=== PATIENT | male | born 1975 | race African-American/Black ===

== ENCOUNTER 2023-02-11 15:32 | Outpatient (CLI) | payer OTHER ==
--- NOTE | 2023-02-11 16:30 | SLEEP CARE CONSULTATION ---
Information from patient questionnaire entered by Jennifer Urban. I have reviewed and concur with the information entered by Jennifer Urban. This document represents the service I personally performed and the decisions made by me, Perri Aguilar ARNP. History of Present Illness Service Date and Time: 02/11/2023 1532 Reason for Visit: New patient Chief Complaint: reports: Unrefreshed sleep, Excessive daytime sleepiness, Fatigue, Frequent awakenings at night Date of Onset: 2YRS Usual bedtime: 1030PM Time it takes to fall asleep: 10-15MIN Snores at night: Yes Observed to quit breathing while asleep: No Sleeps alone due to snoring: No Number of times waking at night: 5-6 Reasons for waking at night: reports: Other (UNKOWN). denies: Choking, Snoring, Gasping for air Toss, Turn, or Twitch while sleeping: Yes Recalls having dreams: Yes Usually gets out of bed at: 530AM; weekends [id number] if alexandr Feels refreshed in the morning: No Morning headache: No Sleepy or fatigued during the day: Yes Ever fallen asleep while driving: Yes (drowsy driving; no accidents) Takes day naps: No (naps during day make him more tired) Dreams during day naps: Yes Prior sleep studies: Yes Year and Where: [facility] 2013 Additional HPI information: I had the pleasure of seeing MAN SEQUEIRA today regarding the possibility of him having a sleep disorder. His current complaints are excessive daytime sleepiness, fatigue, frequent night awakenings, snoring and unrefreshed sleep. He states it is easy to fall asleep but he cannot stay asleep at night. He is waking up 3-4 times a night. His mind is racing and he cannot shut it off. He has tried many modalities to try to sleep consistently. He states he snores but his can still sleep in same room without complaining of his snoring. She falls asleep before him and he gets up before she does. He states he does not wake up feeling rested and is fatigued during the day. He has had some drowsy driving, but no accidents. He would just like to be able to sleep through the night and feel rested. He had a sleep study in 2014 at [facility] that was negative for sleep apnea. He states he has gained about 15 pounds since that last study. - Parasomnia Symptoms Ever been unable to move upon waking from sleep: Yes (6 times in last 5 years) Walks in sleep: No Talks in sleep: No Ever acted out dreams in sleep: No Ever felt weak in the knees when startled or emotional: No Bothered by creepy, crawly, restless sensations in legs: No Problems with memory or concentration: Yes (both) Subjective Initial [place] Sleepiness Scale score: 20 (02/11/23) Past Medical History Past Medical History: reports: Other (samson knee surgeries in last year) Social History The patient's occupation is a [employer]. Patient is Single and lives in [place]. Have you smoked in the past 12 months: No Alcohol use: Yes Alcohol amount and frequency: 2-3 DRINKS 3 TIMES WEEK Caffeine use: Yes Caffeine amount and frequency: 1-2 FROM TIME TO TIME Family History Family history of sleep disordered breathing: No Family Hx Sleep Apnea: Grandparent: Snoring Allergies and Home Medications Known drug allergies: No Drug allergies reviewed: Yes Home medication list reviewed: Yes Allergy and home medication list: Allergies No Known Drug Allergies Allergy (Verified 02/10/23 10:16) Medications: Celebrex, for knees Omeprazole, daily for heartburn Review of Systems Cardiovascular: reports: high blood pressure (recent measurements, no treatment at this time) Gastrointestinal: reports: heartburn Neurological: denies: headaches, head trauma Psychiatric: denies: Attention Deficit Hyperactivity, anxiety, depression Ear/Nose/Throat: reports: wisdom teeth removed. denies: injury to nose, tonsillectomy Endocrine: denies: thyroid disease Musculoskeletal: reports: joint pain, back pain, joint swelling Immunologic: denies: allergies to food or environment Physical Exam Vital signs obtained and entered by: JENNIFER Calabrese MA Blood Pressure: 130/86 (LEFT ARM) Cuff size: regular Heart Rate: 72 O2 Saturation: 96 Height: 5 ft 10 in Weight: 240 lb Body Mass Index: 34.4 BMI Classification: Obese Neck circumference: 19.25 Mouth and throat: narrow oropharynx Soft palate: long Hard palate: normal Uvula: normal Uvula visualization: 0% Mallampati Class IV Tongue: enlarged in size with teeth martinez on lateral edges Tonsils: 1+ Neck: normal w/o lymphadenopathy or thyromegaly Heart: regular rate and rhythm Lungs: clear bilaterally Impression and Plan 1. Suspected Obstructive Sleep Apnea-Hypopnea Syndrome, as suggested by a history of loud and irregular snoring, frequent awakening during the night, unrefreshed sleep, cognitive impairment, and excessive daytime sleepiness. Narrow oropharynx and obesity are common predisposing factors for obstructive sleep apnea-hypopnea syndrome. I recommend proceeding to polysomnography to confirm the diagnosis and to assess severity. If the patient has significant sleep disordered breathing, a manual CPAP titration study will also be performed to find the optimal treatment pressure. I informed the patient of what the sleep studies involve and after some discussion, obtained agreement to proceed. The pathophysiology of obstructive sleep apnea-hypopnea syndrome was discussed with the patient and health risks of cardiovascular and cerebrovascular disease if not treated. Risks of drowsy driving discussed in detail and patient advised to avoid long distance driving and to [employer] at the first sign of drowsiness. Patient agreed to plan. * Schedule polysomnography * Avoid long distance driving or driving when feeling sleepy. * Avoid alcohol, sedative and muscle relaxant around bedtime. * Attempt to lose weight. * Review instructions provided by trained office staff on how to prepare for the sleep study. * Return for follow-up after sleep study completed. Counseling Topics: Weight loss health impact Visit Type: In Office Time Spent with Patient (minutes): 30 Provider Statement: I spent 100% of the Face to Face Visit with the patient with greater than 50% spent counseling the patient and coordination of care.
[2023-02-11 16:40] VITALS: BP 130/86
== END 2023-02-11 15:33 | disposition home or self-care (01) ==
LOC: SC 15:32
PROVIDERS: ATTEND Nurse Practitioner Family
DX: R06.83 Snoring (principal); G47.8 Other sleep disorders; G47.10 Hypersomnia, unspecified; R53.83 Other fatigue; E66.9 Obesity, unspecified; Z68.34 Body mass index [BMI] 34.0-34.9, adult
CPT/HCPCS: 99203; 99212

== ENCOUNTER 2023-03-11 20:50 | Outpatient (CLI) | payer OTHER | END 2023-03-11 20:51 | disposition home or self-care (01) | LOC: SC 20:50 | PROVIDERS: ATTEND Nurse Practitioner Family | DX: G47.33 Obstructive sleep apnea (adult) (pediatric) (principal); G47.61 Periodic limb movement disorder; E66.9 Obesity, unspecified; Z68.34 Body mass index [BMI] 34.0-34.9, adult | CPT/HCPCS: 95810 ==

== ENCOUNTER 2023-03-22 11:24 | Outpatient (CLI) | payer OTHER ==
[2023-03-22 12:29] VITALS: BP 144/110
--- NOTE | 2023-03-22 12:29 | SLEEP CARE CONSULTATION ---
Information from patient questionnaire entered by Navin Urban. I have reviewed and concur with the information entered by Navin Urban. This document represents the service I personally performed and the decisions made by me, Vera Schaefer MD, [facility]. History of Present Illness Service Date and Time: 03/22/2023 1124 Initial [place] Sleepiness Scale score: 20 (02/11/23) Current [place] Sleepiness Scale score: 14 (03/22/23) Additional HPI information: HPI: Mr. Koch returned for follow up of the sleep study he had on 03/11/2023. The polysomnography showed that the patient had slightly reduced sleep efficiency due to frequent awakenings during the night. The sleep architecture was abnormal for sleep fragmentation and reduced amount of time spent in REM and slow wave sleep (N3). Respiratory monitoring showed mild obstructive sleep apnea-hypopnea (AHI = 5.5) associated with frequent arousals, oxyhemoglobin desaturation and moderate hypoxia (cece oxygen saturation of 79%). The patient had very limited supine sleep (supine AHI = 12.0; non-supine = 5.55). Snore was light to moderate in intensity. There was mild periodic leg movement of sleep contributing to the sleep fragmentation. Cardiac rhythm was normal sinus rhythm without significant arrhythmia. No abnormal behavior (parasomnia) observed during the night. The patient was informed of these findings. I explained to him the pathophysiology behind obstructive sleep apnea. We then spent quite a bit of time discussing different treatment options. For mild obstructive sleep apnea, surgery and oral appliance are alternatives to nasal CPAP therapy but in moderate or severe cases, nasal CPAP is the most effective and reliable treatment. Weight loss in an obese individual is strongly recommended. After some discussion, he opted to go with the nasal CPAP therapy. I explained to him how CPAP machine works and what to expect when using the machine. He is encouraged to use CPAP every night especially in the first 2 to 3 nights in order to get used to it. He should call his CPAP supplier or me to discuss any mechanical problem that may occur. If he snores or feels like he is not getting enough air from the machine, he should notify me and I will increase the pressure. Sleep Study - Results Type of Sleep Study: Polysomnography (COMPLETED 03/11/23) Prior sleep studies: Yes Year and Where: [facility] 2013 Allergies and Home Medications Drug allergies reviewed: Yes Home medication list reviewed: Yes Allergy and home medication list: Allergies No Known Drug Allergies Allergy (Verified 03/19/23 14:14) Review of Systems Review of systems same as previous: Yes Physical Exam Vital signs obtained and entered by: NAVIN Calabrese MA Blood Pressure: 144/110 (LEFT ARM) Cuff size: regular Heart Rate: 101 O2 Saturation: 96 Height: 5 ft 10 in Weight: 247 lb 9.6 oz Body Mass Index: 35.5 BMI Classification: Obese Impression and Plan IMPRESSION: 1. Obstructive Sleep Apnea-Hypopnea Syndrome, mild, associated with moderate hypoxemia and sleep fragmentation. Possibly, this is the cause of the patients symptoms of unrefreshed sleep, and excessive daytime sleepiness. Untreated obstructive sleep apnea can also cause hypertension. As mentioned above, the patient will be started on an autoCPAP set between 5 and 15 cmH2O. Depending on his response and compliance he may be brought back for an overnight CPAP titration study. PLAN: 1. Prescription made for an autoCPAP, heated humidifier, and related supplies. 2. Attempt to lose weight and avoid alcohol consumption near bedtime. 3. Return for follow up after one month of using the CPAP. Prescriptions: Auto CPAP Follow up with Sleep Care in: 1-2 months Follow up recommended for: Weight management Visit Type: In Office Time Spent with Patient (minutes): 15 Provider Statement: I spent 100% of the Face to Face Visit with the patient with greater than 50% spent counseling the patient and coordination of care.
== END 2023-03-22 11:25 ==
LOC: SC 11:24
PROVIDERS: ATTEND Internal Medicine Pulmonary Disease
DX: G47.33 Obstructive sleep apnea (adult) (pediatric) (principal); E66.9 Obesity, unspecified; Z68.35 Body mass index [BMI] 35.0-35.9, adult
CPT/HCPCS: 99212